=== PATIENT | male | born 1950 | race Caucasian/White ===

== ENCOUNTER 2017-09-06 15:08 | Inpatient (IN) | payer OTHER, MEDICARE ==
[2017-09-06] MEDS ORDERED: Nitroglycerin TAB 0.4 MG* 0.4 MG TAB SL PRN (15:45)
[2017-09-06] MEDS ORDERED: Ticagrelor* 90 MG TAB PO ONE (15:45)
[2017-09-06] MEDS ORDERED: Heparin for STEMI(*) 5,000 UNITS/ML 1 ML VIAL IV ONE (15:45)
--- NOTE | 2017-09-06 15:57 | ED ---
Shortness of Breath - HPI Summary HPI Summary: This is Cherrie henderson, documenting for attending Justyn Talbot MD. This patient is a 67 year old M BIBA to [facility] accompanied by his with a chief complaint of general malaise and not feeling like himself with cough and SOB for the past week. Reports recent headache. Denies CP, diaphoresis, nausea, urinary or bowel symptoms, and any pain. [facility], and was sent to the ED. PMHx of COPD and a CABG roughly a year ago. ASA and Nitro not given by EMS. - History of Current Complaint Chief Complaint: EDChestPainROMI Hx Obtained From: Patient Onset/Duration: Lasting Days Timing: Constant Associated Signs & Symptoms: Cough (Nonproductive) - Allergy/Home Medications Allergies/Adverse Reactions: Allergies Allergy/AdvReac Type Severity Reaction Status Date / Time No Known Allergies Allergy Verified 09/06/17 15:42 Home Medications: Home Medications Albuterol HFA INHALER* [Ventolin HFA Inhaler*] 2 puff INH Q4H PRN 09/06/17 [ History Confirmed 09/06/17] Aspirin EC TAB* [Ecotrin EC Low Dose 81 MG*] 81 mg PO DAILY 09/06/17 [History Confirmed 09/06/17] Atorvastatin* [Lipitor*] 20 mg PO DAILY 09/06/17 [History Confirmed 09/06/17] Budesonide/Formote 160/4.5(NF) [Symbicort 160/4.5 (NF)] 2 puff INH BID 09/06/17 [History Confirmed 09/06/17] Carvedilol TAB* [Coreg TAB*] 25 mg PO BID 09/06/17 [History Confirmed 09/06/17] Cholecalciferol TAB* [Vitamin D TAB*] 1,000 unit PO DAILY 09/06/17 [History Confirmed 09/06/17] Losartan TAB* [Cozaar TAB*] 12.5 mg PO DAILY 09/06/17 [History Confirmed ] Mirtazapine TAB* [Remeron TAB*] 7.5 mg PO BEDTIME 09/06/17 [History Confirmed ] Tiotropium CAP.INH* [Spiriva CAP.INH*] 1 cap.inh INH DAILY 09/06/17 [History Confirmed 09/06/17] metFORMIN* [Glucophage 500 MG TAB *] 500 mg PO BID 09/06/17 [History Confirmed 09/06/17] PMH/Surg Hx/FS Hx/Imm Hx Cardiovascular History: Reports: Hx Coronary Artery Disease Respiratory History: Reports: Hx Chronic Obstructive Pulmonary Disease (COPD) Infectious Disease History: No Infectious Disease History: Denies: Traveled Outside the [place] in Last 30 Days - Family History Known Family History: Positive: Hypertension - Social History Lives: With Family Smoking Status (MU): Former Smoker Review of Systems Negative: Skin Diaphoresis Negative: Chest Pain Positive: Shortness Of Breath, Cough Gastrointestinal: Negative - bowel symptoms Negative: Nausea Positive: no symptoms reported Positive: Headache All Other Systems Reviewed And Are Negative: Yes Physical Exam - Summary Physical Exam Summary: Appearance: Well-appearing, Obese, no apparent distress Skin: Warm Eyes: Normal ENT: Normal Neck: Supple, nontender Respiratory: Clear to auscultation Cardiovascular: Regular rate, regular rhythm. Normal S1, S2. Abdomen: Soft, nontender. Mild abdominal distention Musculoskeletal: Normal, Strength/ROM Intact Neurological: Normal, A&Ox3 Psychiatric: Normal General: No acute distress Triage Information Reviewed: Yes Vital Signs On Initial Exam: Initial Vitals Temp Pulse Resp BP Pulse Ox 99.1 F 100 18 153/97 93 09/06/17 15:28 09/06/17 15:28 09/06/17 15:28 09/06/17 15:28 09/06/17 15:28 Vital Signs Reviewed: Yes Diagnostics - Vital Signs Vital Signs Temp Pulse Resp BP Pulse Ox 09/06/17 15:28 99.1 F 100 18 153/97 93 - Laboratory Result Diagrams: 09/07/17 06:15 09/07/17 06:15 Lab Statement: Any lab studies that have been ordered have been reviewed, and results considered in the medical decision making process. - Radiology CXR Radiology Interpretation Completed By: Radiologist - NO ACTIVE DISEASE. ED Physician has reviewed this report. - EKG 1535 Cardiac Rate: NL - 98 BPM EKG Rhythm: Sinus Rhythm EKG Interpretation: LBBB 1644 Cardiac Rate: Tachycardia - 101 BPM EKG Rhythm: Sinus Tachycardia EKG Interpretation: LBBB Course/Dx - Course Course Of Treatment: Pt came from [place] with new LBBB on EKG, complared to previous EKG from July. trop neg, transthoracic ECHO ordered- prelim report by Dr Cruz - septal wall hypokinesis (as expected from previous CABG) but no other areas of akinesia or hypokinesis or wall motion abnormalities. Pt continues to be CP free during this admission to ED. Pt has h/o CABG x 2with AVR and will need R/O ACS cardiac consult and will be admitted under hospitalist service. - Diagnoses Provider Diagnoses: New onset left bundle branch block (LBBB) - Physician Notifications Discussed Care of Patient With: Lucía Cruz - cardiology Time Discussed With Above Provider: 15:15 Instructed by Provider To: Admit As Inpatient - recommends Echocardiogram. At 1721, Dr. Cruz states preliminary echo read suggests septal hypokenesis which is consistentwith post op CABG patient. Discharge - Sign-Out/Discharge Documenting (check all that apply): Patient Departure - Discharge Plan Condition: Stable Disposition: ADMITTED TO [facility] - Billing Disposition and Condition Condition: STABLE Disposition: Admitted to [facility] Consult Consult: At 17:50, Dr. Acosta, hospitalist agrees to admit patient.
[2017-09-06 16:14] LABS: ABS Basophils 0.1 10^3/ul (0-0.2); ABS Eosinophils 0.3 10^3/ul (0-0.6); ABS Lymphocytes 1.6 10^3/ul (1.0-4.8); ABS Monocytes 0.9 10^3/ul (0-0.8); ABS Neutrophils 5.3 10^3/ul (1.5-7.7); ABS Nucleated RBC 0 10^3/ul; Eosinophil % 3.5 % (0-6); Hematocrit 44 % (42-52); Lymphocyte % 19.7 % (25-47); Mean Corpuscular HGB Conc 34 g/dl (31-36); Mean Corpuscular Hemoglobin 30 pg (27-31); Mean Corpuscular Volume 88 fL (80-94); Mean Platelet Volume 6.9 um3 (7.4-10.4); Nucleated Red Blood Cells % 0.1; Platelet Count 309 10^3/ul (150-450); Red Blood Count 5.03 10^6/ul (4.00-5.40); Red Cell Distribution Width 14 % (10.5-15); White Blood Count 8.1 10^3/ul (3.5-10.8)
[2017-09-06 16:25] LABS: INR 0.97 (0.77-1.02)
[2017-09-06] MEDS ORDERED: Perflutren Lipid Microsphere* 3 ML VIAL ONE (16:25)
--- NOTE | 2017-09-06 16:28 | RAD ---
INDICATION: Left bundle branch block COMPARISON: None TECHNIQUE: An AP portable view obtained at 1607 hours is submitted. FINDINGS: Bones/Soft Tissues: There are no acute bony findings. There is sternotomy Cardiomediastinal: The cardiomediastinal silhouette is normal. Lungs: There are no infiltrates. Pleura: There are no pleural effusions. Other: None IMPRESSION: NO ACTIVE DISEASE.
[2017-09-06 16:36] LABS: EGFR Non-African American 69.7 (>60)
[2017-09-06] MEDS ORDERED: Heparin DRIP 25,000 UNITS(*) 25,000 UNITS/500 ML BAG IV SCH (17:00)
[2017-09-06] MEDS ORDERED: Heparin DRIP 25,000 UNITS(*) 25,000 UNITS/500 ML BAG ONE (17:01)
--- NOTE | 2017-09-06 17:22 | ECHO ---
Patient: TAMIA PLATT [facility] Rec#: [id number] : 1950 Date: 09/06/2017 Age: 67y Height: 183 cm / 72.0 in Weight: 100 kg / 220.4 lbs Sex: M BSA: 2.22 Room#: ed 19 Admit Date#: 09/06/2017 Type: Inpatient Referring: Justyn Talbot Reading: Lucía Cruz MD Manager Clinical Informatics: Meghna Williamson,LAURENCECS,RDMS CC: NESS HENRY Transthoracic Echocardiogram Indication: ABN EKG BP: 153/97 HR: 94 Rhythm: NSR Findings History: AOV stenosis, AVR (bovine), CAD, CABG, HTN, HLD, DM, COPD Technical Comments: The study is technically difficult. The study is technically limited due to the patient's history of COPD. Left Ventricle: The left ventricular chamber size is normal. Mild to moderate concentric left ventricular hypertrophy is observed. The estimated ejection fraction is 50-55%. Ventricular septal wall motion has a post-operative appearance. There is an E to A reversal in the mitral valve flow pattern suggestive of diastolic dysfunction. Left Atrium: The left atrium is mildly dilated. Right Ventricle: The right ventricular chamber size and systolic function are within normal limits. Right Atrium: The right atrium is slightly dilated. Aortic Valve: There is a trace of aortic regurgitation. The mean gradient of the aortic valve is 10 mmHg. The aortic valve area, by peak velocities, is calculated at 1.4 cm2. Acceleration time 87 ms. A bio-prosthetic aortic valve is present. The bio-prosthetic aortic valve appears to be functioning normally. Mitral Valve: The mitral valve leaflets are mildly thickened. There is a trace of mitral regurgitation. There is no evidence of mitral stenosis. Tricuspid Valve: The tricuspid valve leaflets are normal. There is no evidence of tricuspid valve regurgitation. Unable to estimate the right ventricular systolic pressure. Pulmonic Valve: The pulmonic valve structure is not well visualized. Pericardium: There is no significant pericardial effusion. Aorta: The aorta is not well visualized. There is no dilatation of the aortic arch. Pulmonary Artery: The main pulmonary artery is not well visualized. Venous: The inferior vena cava is not visualized. Contrast: Definity was used to optimize study. A total of 2.5 ml was used Conclusions The study is technically difficult, Definity used for wall motion. Mild to moderate concentric left ventricular hypertrophy is observed. Ventricular septal wall motion has a post-operative appearance, otherwise normal wall motion. The estimated ejection fraction is 50-55%. There is an E to A reversal in the mitral valve flow pattern suggestive of diastolic dysfunction. The right ventricular chamber size and systolic function are within normal limits. A bio-prosthetic aortic valve is present and is functioning normally. There is a trace of aortic regurgitation. The mean gradient of the aortic valve is 10 mmHg. There is a trace of mitral regurgitation. Prior echo not available at this time to compare. Measurements Name Value Normal Range RVDdMajor (2D) 2.8 cm (2.2 - 4.4) RAd ISD 4CH 5 cm (3.4 - 4.9) RA (A4C)W 4.8 cm (2.9 - 4.6) IVSd (2D) 1.4 cm (0.6 - 1) LVPWd (2D) 1.4 cm (0.6 - 1) LVIDd (2D) 3.9 cm (3.6 - 5.4) LVIDs (2D) 3.1 cm - LV FS (2D) 21 % (25 - 45) Aortic arch 3.3 cm (1.8 - 3.4) LA dimension (AP) 2D 4.1 cm (2.3 - 3.8) LAd ISD 4CH 5.4 cm (2.9 - 5.3) LA ISD 4CH W 3.7 cm (2.5 - 4.5) Name Value Normal Range LA ESV BP (A/L) 57 ml - LA ESV BP (A/L) index 26 ml/m2 - Name Value Normal Range MV E-wave Vmax 0.7 m/sec - MV deceleration time 66 msec - MV A-wave Vmax 1 m/sec - MV E:A ratio 0.7 ratio - LV septal e' Vmax 0.05 m/sec - LV lateral e' Vmax 0.07 m/sec - LV E:e' septal ratio 16 ratio - LV E:e' lateral ratio 10 ratio - Name Value Normal Range AV Vmax 2 m/sec - AV VTI 34 cm - AV peak gradient 16 mmHg - AV mean gradient 10 mmHg - LVOT diameter 2 cm - LVOT Vmax 0.9 m/sec - LVOT VTI 15 cm - LVOT peak gradient 3.2 mmHg - LVOT mean gradient 0.6 mmHg - DOI (VTI) 0.4 ratio - CHIKIS (continuity Vmax) 1.4 cm2 - CHIKIS (continuity VTI) 1.4 cm2 - BETY Vmax 0.7 m/sec - Name Value Normal Range PV Vmax 0.9 m/sec - PV peak gradient 3.2 mmHg -
[2017-09-06] MEDS ORDERED: Al Hydrox/Mg Hydrox/Simet LIQ* 30 ML UDC PO PRN (18:19)
[2017-09-06] MEDS ORDERED: Albuterol/Ipratropium NEB.SOL* Albuterol 2.5 MG/Ipratropium 0.5 MG 3 ML INH PRN (18:19)
[2017-09-06] MEDS ORDERED: Acetaminophen TAB* 325 MG PO PRN (18:19)
[2017-09-06] MEDS ORDERED: Albuterol HFA INHALER* 8 gm MDI INH PRN (18:23)
[2017-09-06] MEDS ORDERED: Dextrose 50% Syringe 50 ML* 25 GM/50 ML SYRINGE IV PUSH PRN (18:49)
[2017-09-06] MEDS: methylPREDNISolone SOD 40 MG* 1 ML VIAL IV SCH (20:29)
[2017-09-06] MEDS: Mirtazapine TAB* 15 MG PO SCH (20:29)
[2017-09-06] MEDS: Carvedilol TAB* 25 MG PO SCH (20:29)
[2017-09-06] MEDS: Insulin LISPRO* 1 UNITS UNIT SUBCUT SCH (20:33)
--- NOTE | 2017-09-06 22:00 | HP ---
CONTINUATION ADDENDUM NOW INCLUDED ON THIS REPORT HISTORY AND PHYSICAL: DATE OF ADMISSION: 09/06/17 PRIMARY CARE PHYSICIAN: DEEP Franks at the [facility]. DRIVABILITY TECHNICIAN: Dr. Macias at [facility]. CHIEF COMPLAINT: Lethargy. HISTORY OF PRESENT ILLNESS: This is a 67-year-old man with history of aortic stenosis, status post AVR and coronary artery disease, status post CABG and COPD who presents today with one week of lethargy. He is here with his and his son and [id number] and he reports feeling "run down" over the past week. 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 So, she knew something was wrong. She made an appointment with his PCP [facility] and when he was in their office, he was found to have a new left bundle- branch block, so [place] [facility] [place] He reports worsening shortness of breath over the past week and states he is usually able to walk several blocks without shortness of breath, but over the past week, he has not even attempted to walk much other than around his house because he gets shortness of breath with exertion. He also complains of a productive cough, which is worse than usual and some wheezing. He tried to use his rescue inhaler, but that did not help his symptoms. PAST MEDICAL HISTORY: 1. Aortic stenosis, status post a bovine AVR in March 2016. 2. Coronary artery disease, status post CABG in March 2016. Coronary artery disease was incidentally found on a preop left heart cath for the aortic valve. He never had an MD or angina. 3. COPD. 4. Hypertension. 5. Diabetes. HOME MEDICATIONS: 1. Aspirin 81 mg daily. 2. Vitamin D 1000 units daily. 3. Metformin 500 mg b.i.d. 4. Coreg 25 mg b.i.d. 5. Losartan 12.5 mg daily. 6. Atorvastatin 20 mg daily. 7. Symbicort 2 puffs b.i.d. 8. Spiriva daily. 9. Proventil p.r.n. SOCIAL HISTORY: He lives with his . 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 REVIEW OF SYSTEMS: Positive for orthopnea, however, this has been for years. He sleeps in a reclined position. He also notes phlegm and weight gain; however , he states he has been eating more ice cream than usual. So, he thinks that is from that. He denies fevers, nausea, vomiting, diarrhea, constipation, falls , myalgias, or joint pains. LABORATORY DATA: White blood cells 8.1, hemoglobin 15, platelets 309. INR 0.97. Sodium 140, potassium 4.0, chloride 105, bicarb 28, BUN 17, creatinine 1.06, glucose 109. Lactic acid 0.9. AST 11, ALT 22, alk phos 68. Troponin 0.00. CK-MB 4.9. BNP 35. IMAGING: Transthoracic echocardiogram: Mild to moderate LVH, EF 50 to 55%, E to A reversal suggesting diastolic dysfunction, normal RV, bioprosthetic aortic valve functioning normally, aortic valve mean gradient 10 mmHg, trace MR. EKG: Sinus tachycardia and a new left bundle-branch block. Chest x-ray: No active disease. ASSESSMENT AND PLAN: This is a 67-year-old man with history of coronary artery disease and aortic stenosis, status post AVR and CABG as well as chronic obstructive pulmonary disease who presents with one week of lethargy and shortness of breath and found to have a new left bundle-branch in the emergency department. 1. New left bundle-branch block. He is currently being treated for acute coronary syndrome in the emergency department. The case has been discussed between the emergency department physician and the violent crimes detective and this was determined not to be STEMI based on the normal echocardiogram with no wall movement abnormalities. However, we will continue the heparin drip until another troponin returns to ensure that this is not acute coronary syndrome. We will attempt to obtain an old cath report from the [facility] to understand his coronary anatomy from last year. 2. Chronic obstructive pulmonary disease exacerbation. I suspect this is most likely the cause of his current symptoms. He has bronchospasms on exam and I am treating him for a COPD exacerbation with Solu-Medrol and nebulizers. 3. Aortic valve replacement. He has a bovine valve. 4. Hypertension. Continue Coreg and losartan. 5. Coronary artery disease. Continue beta-spenser, aspirin, and statin. 6. Diabetes. Hold metformin and treat with insulin sliding scale. 7. DVT prophylaxis. Heparin subcutaneously. CONTINUATION ADDENDUM: PHYSICAL EXAMINATION GENERAL: Alert, well-appearing man, in no distress. He is able to speak in full sentences and has no accessory respiratory muscles in use. He is nontoxic appearing. VITAL SIGNS: Temperature 99.1, heart rate 100, respiratory rate 18, pulse ox 93 % on room air, blood pressure 153/97. HEENT: Pupils equal, round, and reactive to light. No nystagmus. Oral mucosa is moist with no pharyngeal exudates or erythema. NECK: No JVP. No cervical or supraclavicular lymphadenopathy. CHEST: Regular rate and rhythm. An aortic click is heard at the left upper sternal border and into his carotid arteries. Sternotomy incision is well healed. Lungs have a prolonged expiratory phase and diffuse expiratory wheezing. ABDOMEN: Soft, nontender, nondistended. No guarding or rebound. EXTREMITIES: No edema. No ulcers. No rashes. NEUROLOGIC: Strength 5/5. [id number]/CPS #: [id number]/CPS #: [id number] MTDD
--- NOTE | 2017-09-06 22:08 | HP ---
HISTORY AND PHYSICAL: DATE OF ADMISSION: 09/06/17 ADDENDUM: PHYSICAL EXAMINATION GENERAL: Alert, well-appearing man, in no distress. He is able to speak in full sentences and has no accessory respiratory muscles in use. He is nontoxic appearing. VITAL SIGNS: Temperature 99.1, heart rate 100, respiratory rate 18, pulse ox 93 % on room air, blood pressure 153/97. HEENT: Pupils equal, round, and reactive to light. No nystagmus. Oral mucosa is moist with no pharyngeal exudates or erythema. NECK: No JVP. No cervical or supraclavicular lymphadenopathy. CHEST: Regular rate and rhythm. An aortic click is heard at the left upper sternal border and into his carotid arteries. Sternotomy incision is well healed. Lungs have a prolonged expiratory phase and diffuse expiratory wheezing. ABDOMEN: Soft, nontender, nondistended. No guarding or rebound. EXTREMITIES: No edema. No ulcers. No rashes. NEUROLOGIC: Strength 5/5. [id number]/CPS #: [id number] [facility]
[2017-09-07] MEDS ORDERED: Heparin VIAL(*) 5000 UNITS/ML VIAL (FIVE THOUSAND) ONE (01:01)
--- NOTE | 2017-09-07 01:10 | PN ---
Progress Note - Progress Note Date of Service: 09/07/17 Note: Heparin drip d/c after two neg troponins. Remains CP free.
[2017-09-07 06:31] LABS: ABS Basophils 0 10^3/ul (0-0.2); ABS Eosinophils 0 10^3/ul (0-0.6); ABS Lymphocytes 0.8 10^3/ul (1.0-4.8); ABS Monocytes 0.2 10^3/ul (0-0.8); ABS Neutrophils 6.2 10^3/ul (1.5-7.7); ABS Nucleated RBC 0 10^3/ul; Eosinophil % 0 % (0-6); Hematocrit 45 % (42-52); Hemoglobin 15.3 g/dl (14.0-18.0); Lymphocyte % 11.1 % (25-47); Mean Corpuscular HGB Conc 34 g/dl (31-36); Mean Corpuscular Hemoglobin 30 pg (27-31); Mean Corpuscular Volume 87 fL (80-94); Nucleated Red Blood Cells % 0; Platelet Count 320 10^3/ul (150-450); Red Blood Count 5.13 10^6/ul (4.00-5.40); Red Cell Distribution Width 14 % (10.5-15); White Blood Count 7.2 10^3/ul (3.5-10.8)
[2017-09-07] MEDS: Tiotropium CAP.INH* CAP.INH/18 MCG (USE ORDER SET !) INH SCH (07:22)
[2017-09-07] MEDS ORDERED: Spiriva Inhaler DEVICE* 1 EACH DEVICE INH ONE (09:00)
[2017-09-07] MEDS: Cholecalciferol TAB* 1000 UNITS PO SCH (09:13)
[2017-09-07] MEDS: Atorvastatin* 20 MG TAB PO SCH (09:14)
[2017-09-07] MEDS: Carvedilol TAB* 25 MG PO SCH ×2 (09:14→20:24)
[2017-09-07] MEDS: Losartan TAB* 25 MG PO SCH (09:14)
[2017-09-07] MEDS: Aspirin EC TAB* 81 MG TAB.EC PO SCH (09:15)
[2017-09-07] MEDS: methylPREDNISolone SOD 40 MG* 1 ML VIAL IV SCH ×2 (09:15→20:24)
[2017-09-07] MEDS: Insulin LISPRO* 1 UNITS UNIT SUBCUT SCH ×4 (09:16→21:02)
--- NOTE | 2017-09-07 14:40 | PN ---
Subjective Date of Service: 09/07/17 Interval History: No overnight events, feels better this morning. Still with a productive cough, shortness of breath is improving. No chest pain. Placed on O2 overnight for pulse ox of 92%. Objective Active Medications: Acetaminophen (Tylenol Tab*) 650 mg PO Q4H PRN PRN Reason: FEVER/PAIN Al Hydrox/Mg Hydrox/Simethicone (Maalox Plus*) 30 ml PO Q6H PRN PRN Reason: INDIGESTION Albuterol (Ventolin Hfa Inhaler*) 2 puff INH Q4H PRN PRN Reason: SHORTNESS OF BREATH Albuterol/Ipratropium (Duoneb (Albuterol 2.5 Mg/Ipratropium 0.5 Mg)) 1 neb INH [id number] AWAKE PRN PRN Reason: sob/wheezing Aspirin (Aspirin Ec Tab*) 81 mg PO DAILY [facility] Last Admin: 09/07/17 09:15 Dose: 81 mg Atorvastatin Calcium (Lipitor*) 20 mg PO DAILY [facility] Last Admin: 09/07/17 09:14 Dose: 20 mg Carvedilol (Coreg Tab*) 25 mg PO BID [facility] Last Admin: 09/07/17 09:14 Dose: 25 mg Cholecalciferol (Vitamin D Tab*) 1,000 units PO DAILY [facility] Last Admin: 09/07/17 09:13 Dose: 1,000 units Dextrose (D50w Syringe 50 Ml*) 12.5 gm IV PUSH .FOR FS < 60 - SS PRN PRN Reason: FS < 60 Insulin Human Lispro (Humalog*) 0 units [facility]BCUT [facility]; Protocol Last Admin: 09/07/17 12:31 Dose: 2 unit Losartan Potassium (Cozaar Tab*) 12.5 mg PO DAILY [facility] Last Admin: 09/07/17 09:14 Dose: 12.5 mg Methylprednisolone Sodium Succinate (Solu-Medrol 40 Mg) 40 mg IV Q12H [facility] Last Admin: 09/07/17 09:15 Dose: 40 mg Mirtazapine (Remeron Tab*) 7.5 mg PO BEDTIME [facility] Last Admin: 09/06/17 20:29 Dose: 7.5 mg Nitroglycerin (Nitroglycerin Tab 0.4 Mg*) 0.4 mg SL Q5M PRN PRN Reason: ANGINA Tiotropium [place] (Spiriva Cap.Inh*) 1 cap INH DAILY [facility] Last Admin: 09/07/17 07:22 Dose: 1 cap Vital Signs - 8 hr 09/07/17 09/07/17 09/07/17 07:19 08:00 11:06 Temperature 97.6 F 98.5 F Pulse Rate 96 96 Respiratory 18 18 Rate Blood Pressure 135/88 131/78 (mmHg) O2 Sat by Pulse 95 94 Oximetry Oxygen Devices in Use Now: Nasal Cannula Appearance: alert, resting comfortably, speaking in full sentences Eyes: No Scleral Icterus Ears/Nose/Mouth/Throat: NL Teeth, Lips, Gums Neck: NL Appearance and Movements; NL JVP, Trachea Midline Respiratory: Symmetrical Chest Expansion and Respiratory Effort, - - diffuse expiratory wheezing, some upper airway wheezing, no rhonchi Cardiovascular: NL Sounds; No Murmurs; No JVD, RRR, - - healed sternotomy Abdominal: NL Sounds; No Tenderness; No Distention, No Hepatosplenomegaly Lymphatic: No Cervical Adenopathy Extremities: No Edema Skin: No Rash or Ulcers Neurological: Alert and Oriented x 3 Result Diagrams: 09/07/17 06:15 09/07/17 06:15 Assess/Plan/Problems-Billing Assessment: 67 yo man with history of AVR and CABG and COPD who presented with one week of shortness of breath and fatigue, found to have a new LBBB in the ED and a COPD exacerbation. - Patient Problems (1) COPD exacerbation Current Visit: Yes Status: Acute Code(s): J44.1 - CHRONIC OBSTRUCTIVE PULMONARY DISEASE W (ACUTE) EXACERBATION SNOMED Code(s): 636889020 Comment: he continues to have bronchospasm continue prednisone and nebulizers needs PFTs as outpatient when he recovers check ambulatory pulse ox today (2) LBBB (left bundle branch block) Current Visit: Yes Status: Acute Code(s): I44.7 - LEFT BUNDLE-BRANCH BLOCK, UNSPECIFIED SNOMED Code(s): 98491798 Comment: New ACS ruled out with a stat echo in the ED, which showed no regional wall motion abnormalities, and 3 negative troponins He needs an ischemic evaluation, but he should first recover from his COPD exacerbation (3) S/P CABG x 2 Current Visit: Yes Status: Acute Code(s): Z95.1 - PRESENCE OF AORTOCORONARY BYPASS GRAFT SNOMED Code(s): 219553887 Comment: [facility] report continue asa/statin/bb (4) S/P AVR (aortic valve replacement) Current Visit: Yes Status: Acute Code(s): Z95.2 - PRESENCE OF PROSTHETIC HEART VALVE SNOMED Code(s): 3230911298839 Comment: bovine valve
[2017-09-07] MEDS: Mirtazapine TAB* 15 MG PO SCH (20:24)
[2017-09-08 06:05] LABS: ABS Basophils 0.1 10^3/ul (0-0.2); ABS Eosinophils 0 10^3/ul (0-0.6); ABS Lymphocytes 1.1 10^3/ul (1.0-4.8); ABS Monocytes 0.8 10^3/ul (0-0.8); ABS Neutrophils 12.4 10^3/ul (1.5-7.7); ABS Nucleated RBC 0 10^3/ul; Eosinophil % 0 % (0-6); Hematocrit 43 % (42-52); Hemoglobin 14.4 g/dl (14.0-18.0); Lymphocyte % 7.5 % (25-47); Mean Corpuscular HGB Conc 33 g/dl (31-36); Mean Corpuscular Hemoglobin 29 pg (27-31); Mean Corpuscular Volume 87 fL (80-94); Nucleated Red Blood Cells % 0; Platelet Count 347 10^3/ul (150-450); Red Blood Count 4.95 10^6/ul (4.00-5.40); Red Cell Distribution Width 14 % (10.5-15); White Blood Count 14.4 10^3/ul (3.5-10.8)
[2017-09-08 06:26] LABS: EGFR Non-African American 82.1 (>60)
[2017-09-08 08:02] VITALS: BP 141/87
[2017-09-08] MEDS: Losartan TAB* 25 MG PO SCH (08:10)
[2017-09-08] MEDS: Cholecalciferol TAB* 1000 UNITS PO SCH (08:10)
[2017-09-08] MEDS: Atorvastatin* 20 MG TAB PO SCH (08:10)
[2017-09-08] MEDS: methylPREDNISolone SOD 40 MG* 1 ML VIAL IV SCH (08:10)
[2017-09-08] MEDS: Insulin LISPRO* 1 UNITS UNIT SUBCUT SCH ×2 (08:12→12:41)
[2017-09-08] MEDS: Aspirin EC TAB* 81 MG TAB.EC PO SCH (08:12)
[2017-09-08] MEDS: Carvedilol TAB* 25 MG PO SCH (08:12)
[2017-09-08] MEDS: Tiotropium CAP.INH* CAP.INH/18 MCG (USE ORDER SET !) INH SCH (08:17)
--- NOTE | 2017-09-08 09:26 | CONSULT ---
Subjective Date of Service: 09/08/17 Interval History: Admission Date: 09/06/17 Consult date: 09/08/2017 PRIMARY CARE PHYSICIAN: DEEP Franks [place]. ASSISTANT FOOD SERVICE MANAGER: Dr. Macias at [facility]. CHIEF COMPLAINT: Weakness Reason for consult: LBBB HISTORY OF PRESENT ILLNESS: Mr. Amezquita is a 67-year-old man with history of /CAD s/p CABG/bioprosthetic AVR 03/2016. His breathing capacity never recovered completely after this. He also has a history of prior tobacco use and COPD. He recent saw PCP with worsening fatigue and lack of interest and worsening dyspnea and a productive cough worse than usual. He has no edema. He was found with a PCP and found with a LBBB not previously documented. BNP and troponin were normal. He has no symptoms of angina. He is being treated for a COPD exacerbation and improved. Echo 09/06/2017 showed LVH with normal LVEF 50% and normal functioning aortic bioprosthesis, LVEF consistent with prior AR echo's reviewed since surgery. He has no history of unexplained syncope/lightheadedness, palpitations or chest discomfort. Of note, coreg dose was doubled July, from 12.5 mg po bid to 25 mg po bid for better BP control PAST MEDICAL/surgical HISTORY: 1. Aortic stenosis s/p bioprosthetic AVR 03/2016 along with CRUZ-LAD/SVG-OM grafts for obstructive LM/pLAD lesions 2. COPD. 3. Hypertension. 4. Diabetes. 5. Obesity SOCIAL HISTORY: He lives with his . 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 [place]. 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 Fam Hx: non-contributory allergies: nkda Medications Active Medications: Acetaminophen (Tylenol Tab*) 650 mg PO Q4H PRN PRN Reason: FEVER/PAIN Al Hydrox/Mg Hydrox/Simethicone (Maalox Plus*) 30 ml PO Q6H PRN PRN Reason: INDIGESTION Albuterol (Ventolin Hfa Inhaler*) 2 puff INH Q4H PRN PRN Reason: SHORTNESS OF BREATH Albuterol/Ipratropium (Duoneb (Albuterol 2.5 Mg/Ipratropium 0.5 Mg)) 1 neb INH [id number] AWAKE PRN PRN Reason: sob/wheezing Aspirin (Aspirin Ec Tab*) 81 mg PO DAILY [facility] Last Admin: 09/08/17 08:12 Dose: 81 mg Atorvastatin Calcium (Lipitor*) 20 mg PO DAILY [facility] Last Admin: 09/08/17 08:10 Dose: 20 mg Carvedilol (Coreg Tab*) 25 mg PO BID [facility] Last Admin: 09/08/17 08:12 Dose: 25 mg Cholecalciferol (Vitamin D Tab*) 1,000 units PO DAILY [facility] Last Admin: 09/08/17 08:10 Dose: 1,000 units Dextrose (D50w Syringe 50 Ml*) 12.5 gm IV PUSH .FOR FS < 60 - SS PRN PRN Reason: FS < 60 Insulin Human Lispro (Humalog*) 0 units SUBCUT ACHS [facility]; Protocol Last Admin: 09/08/17 08:12 Dose: 1 unit Losartan Potassium (Cozaar Tab*) 12.5 mg PO DAILY [facility] Last Admin: 09/08/17 08:10 Dose: 12.5 mg Methylprednisolone Sodium Succinate (Solu-Medrol 40 Mg) 40 mg IV Q12H [facility] Last Admin: 09/08/17 08:10 Dose: 40 mg Mirtazapine (Remeron Tab*) 7.5 mg PO BEDTIME [facility] Last Admin: 09/07/17 20:24 Dose: 7.5 mg Nitroglycerin (Nitroglycerin Tab 0.4 Mg*) 0.4 mg SL Q5M PRN PRN Reason: ANGINA Tiotropium [place] (Spiriva Cap.Inh*) 1 cap INH DAILY [facility] Last Admin: 09/08/17 08:17 Dose: 1 cap Home Medications: Albuterol HFA INHALER* [Ventolin HFA Inhaler*] 2 puff INH Q4H PRN 09/06/17 [ History Confirmed 09/06/17] Aspirin EC TAB* [Ecotrin EC Low Dose 81 MG*] 81 mg PO DAILY 09/06/17 [History Confirmed 09/06/17] Atorvastatin* [Lipitor 40 MG*] 20 mg PO DAILY 09/06/17 [History Confirmed ] Budesonide/Formote 160/4.5(NF) [Symbicort 160/4.5 (NF)] 2 puff INH BID 09/06/17 [History Confirmed 09/06/17] Carvedilol TAB* [Coreg TAB*] 25 mg PO BID 09/06/17 [History Confirmed 09/06/17] Cholecalciferol TAB* [Vitamin D TAB*] 1,000 unit PO DAILY 09/06/17 [History Confirmed 09/06/17] Losartan TAB* [Cozaar TAB*] 12.5 mg PO DAILY 09/06/17 [History Confirmed ] Mirtazapine TAB* [Remeron TAB*] 7.5 mg PO BEDTIME 09/06/17 [History Confirmed ] Tiotropium CAP.INH* [Spiriva CAP.INH*] 1 cap.inh INH DAILY 09/06/17 [History Confirmed 09/06/17] metFORMIN* [Glucophage 500 MG TAB *] 500 mg PO BID 09/06/17 [History Confirmed 09/06/17] Azithromycin TAB* [Zithromax TAB (Z-ENRIQUETA) 250 mg #6 tabs] 250 mg PO DAILY #5 tab 09/08/17 [Rx] predniSONE [Deltasone 20 MG TAB] 40 mg PO DAILY #6 tablet 09/08/17 [Rx] Review of Systems - Measurements Intake and Output: Intake and Output Last 24 Hours 09/06/17 09/07/17 09/08/17 09/09/17 06:59 06:59 06:59 06:59 Intake Total 413 1570 Output Total 0 Balance 413 1570 Weight 218 lb 1.6 oz Intake: Heparin 213 Oral 200 1570 Output: Urine 0 Other: Estimated Void Medium # Bowel Movements 0 0 # Voids 0 1 - Review of Systems Constitutional Symptoms: Positive: Weight Gain, Weakness, Fatigue Dermatology: Negative: Rash, Skin Lesions HEENT: Positive: Sinus Problem Negative: Change in Hearing, Vertigo Eyes: Negative: Change in Vision, Double Vision Thyroid: Positive: Weight Gain Negative: Goiter, Thyroid Nodule, Cold Intolerance, Heat Intolerance, Sweatiness, Tremor, Frequent Defecation, Constipation, Palpitations, Primary Hypothyroidism, Primary Hyperthyroidism Pulmonary: Positive: Cough, Sputum, Wheezing, Respiratory Distress, Shortness of Breath, COPD, Exercise Intolerance Negative: Normal, Hemoptysis, Home Oxygen Cardiology: Positive: Orthopnea Negative: Chest Pain, Palpitations, Swelling of Ankles, Peripheral Vascular Dis, Edema, Faintness, Syncope, Claudication Gastroenterology: Negative: Abdominal Pain, Nausea, Vomiting, Indigestion, Difficulty Swallowing, Heartburn, Constipation, Diarrhea, Blood in Stools, Change in Bowel Habits, Haematemesis Genital - Urinary: Negative: Dysuria, Hematuria Musculoskeletal: Negative: Joint Pain, Joint Stiffness, Arthritis, Osteoporosis, Low Back Pain , Sciatica Endocrinology: Positive: Obesity, Diabetes Negative: Polydipsia, Polyuria, Pituitary Disease Hematologic/Lymphatic: Positive: Use of Antiplatelet Drugs Negative: Anemia, Easy Brusing, Hx Leukemia, Hx Lymphoma, Use of Anticoagulant Neurology: Negative: Headaches, Migraines, Change in Vision, Diplopia, Dizziness, Change in Balancing, Change in Coordination, Change in Memory, Change in Speech , Change in Sphincter Function, Change in Walking, Numbness\Paresthesiae, Unexplained Weakness, Hx of Stroke\TIA, Hx Seizures Psychiatry: Negative: Depressed Mood, Adhedonia, Unusual Anxiety Allergic/Immunologic: Negative: Hx Anaphylaxis, Hx Angioedema, Hx HIV, Immunocompromise Review of Systems Statement: All other review of systems negative, unless stated above. Objective Vital Signs: Temp Pulse Resp BP Pulse Ox 97.4 F 74 14 141/87 96 09/08/17 07:12 09/08/17 08:18 09/08/17 08:18 09/08/17 07:12 09/08/17 08:18 Oxygen Devices in Use Now: Nasal Cannula Appearance: nad, pleasant Ears/Nose/Mouth/Throat: Clear Oropharnyx, Mucous Membranes Moist Neck: NL Appearance and Movements; NL JVP, Trachea Midline Respiratory: Symmetrical Chest Expansion and Respiratory Effort, Clear to Auscultation Cardiovascular: RRR - 1/6 systolic murmur, normal prosthetic s2, sternotomy well healed Abdominal: NL Sounds; No Tenderness; No Distention, - - obese Extremities: No Edema, No Clubbing, Cyanosis Skin: No Rash or Ulcers Neurological: Alert and Oriented x 3 Laboratory Results: 09/08/17 05:51 09/08/17 05:51 INR (Anticoag Therapy) 0.97 (0.77-1.02) 09/06/17 16:08 APTT 28.0 seconds (26.0-36.3) 09/07/17 06:15 Total Bilirubin 0.30 mg/dL (0.2-1.0) 09/06/17 16:08 AST 11 U/L (13-39) L 09/06/17 16:08 ALT 22 U/L (7-52) 09/06/17 16:08 Alkaline Phosphatase 68 U/L (34-104) 09/06/17 16:08 CK-MB (CK-2) 4.9 ng/mL (0.6-6.3) 09/06/17 16:08 B-Natriuretic Peptide 35 pg/mL (-100) 09/06/17 16:08 Total Protein 7.4 g/dL (6.4-8.9) 09/06/17 16:08 Albumin 4.1 g/dL (3.2-5.2) 09/06/17 16:08 Globulin 3.3 g/dL (2-4) 09/06/17 16:08 Albumin/Globulin Ratio 1.2 (1-3) 09/06/17 16:08 09/06/17 09/06/17 16:08 19:59 Troponin I 0.00 0.00 EKG Data: ekg 09/06/2017: sinus rhythm 98 bpm, lbbb Assessment/Plan In summary, Mr. Amezquita is a 67 year old man with a history as above admitted with a COPD exacerbation found with a not previously discovered LBBB in setting of prior AVR and recent beta-spenser dose increase. LVEF remains stable and he has no symptoms attributable to this. - Would decrease coreg back down to 12.5 mg po bid and add 2.5 mg of norvasc. Continue other cardiac medications. Can have a repeat EKG at some point in the future when he follows up with his PCP Thank you for allowing me to participate in the cardiovascular care of this patient. Please do not hesitate to contact me with questions or concerns.
[2017-09-08] MEDS ORDERED: Carvedilol TAB* 25 MG PO SCH (21:00)
== END 2017-09-08 12:46 | disposition home or self-care (01) | DRG 192 ==
LOC: ED 15:08 → MEDTELE 18:19
PROVIDERS: ADMIT Internal Medicine; ATTEND Internal Medicine
DX: J44.1 Chronic obstructive pulmonary disease with (acute) exacerbation (principal); I44.7 Left bundle-branch block, unspecified; I25.10 Atherosclerotic heart disease of native coronary artery without angina pectoris; I11.9 Hypertensive heart disease without heart failure; E11.9 Type 2 diabetes mellitus without complications; E66.9 Obesity, unspecified; Z68.29 Body mass index [BMI] 29.0-29.9, adult; Z95.1 Presence of aortocoronary bypass graft; Z95.2 Presence of prosthetic heart valve; Z87.891 Personal history of nicotine dependence
CPT/HCPCS: 36415; 71045; 80048; 80053; 82550; 82553; 82565; 83605; 83721; 83880; 84484; 85025; 85610; 85730; 93005; 93306; 94640; 99285; A9270-GY; C8929; J1644; J2920